=== PATIENT | female | born 1975 | race Asian ===

== ENCOUNTER 2016-09-03 19:52 | Emergency (ER) | payer MEDICAID ==
[~2016-09-03] VITALS: Ht 172.7 cm; Wt 86.0 kg
[~2016-09-03 19:52] MED LIST: IOHEXOL-350 100 ML BOTTLE ONE; SODIUM CHLORIDE 0.9% 10ML VIAL ONE
[2016-09-03] MEDS ORDERED: ASPIRIN 81MG TABLET PO STA (22:22)
[2016-09-03] MEDS ORDERED: KETOROLAC 30MG/ML VIAL IV ONE (22:30)
[2016-09-03] MEDS ORDERED: HYDROCODONE/ACETAMINOPHEN 5/325MG TABLET PO ONE (22:30)
[2016-09-03 23:17] LABS: BASOPHILS % 0.3 % (0.0-2.0); EOSINOPHILS % 2.9 % (0.0-5.0); HEMATOCRIT. 34.2 % (36.0-48.0); HEMOGLOBIN. 11.6 g/dL (12.0-16.0); LYMPHOCYTES % 33.3 % (20.0-50.0); MEAN CORPUSCULAR HEMOGLOBIN 29.3 pg (28.0-32.0); MEAN CORPUSCULAR VOLUME 86.3 fL (81.0-99.0); MEAN PLATELET VOLUME 9.1 fl (7.4-10.4); MONOCYTES % 7.3 % (2.0-8.0); NEUTROPHILS % 56.2 % (40.0-76.0); PLATELET 168 x1000/uL (130-400); RED BLOOD CELL COUNT 3.97 mill/uL (4.2-5.4); RED CELL DISTRIBUTION WIDTH 13.6 % (11.6-14.6)
[2016-09-03 23:33] LABS: CARBON DIOXIDE 26 mEq/L (21-32); CHLORIDE 104 mEq/L (98-107); TROPONIN I < 0.02 ng/mL (0.00-0.04)
[2016-09-03 23:36] LABS: HCG SCREEN NEGATIVE
[2016-09-03 23:39] LABS: D-DIMER 0.67 mg/L FEU (<0.50); PARTIAL THROMBOPLASTIN TIME 27.9 sec (24.0-34.0); PROTHROMBIN TIME 10.5 sec
[2016-09-04 04:53] VITALS: BP 101/64
== END 2016-09-04 05:18 | disposition home or self-care (01) ==
LOC: ER 23:24
DX: K80.80 Other cholelithiasis without obstruction (principal); R07.89 Other chest pain; M54.30 Sciatica, unspecified side
CPT/HCPCS: 36415; 71010; 71275; 76705; 80048; 80076; 83690; 84484; 84703; 85025; 85379; 85610; 85730; 93005; 93970; 96374; 99285; A4216; J1885; Q9967; Z7610

== ENCOUNTER 2017-09-09 20:53 | Emergency (ER) | payer MEDICAID ==
[~2017-09-09] VITALS: Ht 172.7 cm; Wt 93.0 kg
[2017-09-09 21:00] VITALS: BP 138/89
== END 2017-09-10 00:30 | disposition left against medical advice (07) ==
LOC: ER 20:53
DX: Z53.21 Procedure and treatment not carried out due to patient leaving prior to being seen by health care provider (principal)